=== PATIENT | male | born 1960 | race Two or more races ===

== ENCOUNTER 2021-10-09 03:34 | Emergency (ER) | payer MEDICAID, MEDICARE ==
[~2021-10-09] VITALS: Ht 172.7 cm; Wt 110.0 kg
[2021-10-09 03:50] VITALS: BP 128/88
[2021-10-09] MEDS ORDERED: DICYCLOMINE 10 MG/5 ML ORAL SYR PO ONE (04:00)
[2021-10-09] MEDS ORDERED: MAGNESIUM/ALUMINUM HYDROXIDE/SIMETHICONE 30ML UDC PO ONE (04:00)
[2021-10-09] MEDS ORDERED: VISCOUS LIDOCAINE 2% 15 ML UDC PO ONE (04:00)
[2021-10-09] MEDS ORDERED: ONDANSETRON 4MG ODT PO ONE (04:00)
[2021-10-09 04:10] LABS: BASOPHILS % 0.9 % (0.0-2.0); EOSINOPHILS % 0.6 % (0.0-5.0); HEMOGLOBIN. 14.5 g/dL (14.0-18.0); LYMPHOCYTES % 22.8 % (20.0-50.0); MEAN CORPUSCULAR HEMOGLOBIN 30.9 pg (28.0-32.0); MEAN CORPUSCULAR VOLUME 89.6 fL (80.0-94.0); MEAN PLATELET VOLUME 8.4 fl (7.4-10.4); NEUTROPHILS % 66.7 % (40.0-76.0); PLATELET 206 x1000/uL (130-400); RED BLOOD CELL COUNT 4.69 mill/uL (4.7-6.1); RED CELL DISTRIBUTION WIDTH 14.4 % (11.6-14.6)
[2021-10-09 04:14] LABS: CHLORIDE 102 mEq/L (98-107)
== END 2021-10-09 05:12 | disposition home or self-care (01) ==
LOC: ER 03:34
DX: R19.7 Diarrhea, unspecified (principal); I50.9 Heart failure, unspecified; Z86.59 Personal history of other mental and behavioral disorders
CPT/HCPCS: 36415; 80053; 83690; 85025; 99284; Q0162